=== PATIENT | female | born 1955 | race Caucasian/White ===

== ENCOUNTER → 2023-11-09 11:10 | Outpatient (BNVA) | payer MEDICARE, SELFPAY | PROVIDERS: Family Provider Family Medicine; PCP Family Medicine; Visit Provider Nurse Practitioner | DX: M18.11 Unilateral primary osteoarthritis of first carpometacarpal joint, right hand (principal); M25.50 Pain in unspecified joint | CPT/HCPCS: 20600; 36415; 73130; 86618; 86666; 86757; 99204; J3301 ==